=== PATIENT | female | born 1970 | race Caucasian/White ===

== ENCOUNTER 2019-03-23 15:09 | Emergency (ER) | payer OTHER ==
[2019-03-23 15:20] VITALS: BP 137/78; PULSE 116; TEMP 98.1; BMI 23.1
[2019-03-23] MEDS ORDERED: METHOCARBAMOL 500 MG TABLET PO ONE (15:41)
[2019-03-23] MEDS ORDERED: KETOROLAC TROMETHAMINE 60 MG/2 ML VIAL IM ONE (15:41)
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
[2019-03-23] MEDS ORDERED: METHOCARBAMOL 500 MG TABLET ONE (15:49)
[2019-03-23] MEDS ORDERED: KETOROLAC TROMETHAMINE 60 MG/2 ML VIAL ONE (15:49)
[2019-03-23 16:08] LABS: URINE APPEARANCE CLEAR; URINE BILIRUBIN NEGATIVE (NEGATIVE); URINE COLOR YELLOW; URINE GLUCOSE (UA) 3+ (NEGATIVE); URINE KETONE NEGATIVE (NEGATIVE); URINE LEUK ESTERASE NEGATIVE (NEGATIVE); URINE NITRITE NEGATIVE (NEGATIVE); URINE PROTEIN NEGATIVE (NEGATIVE)
== END 2019-03-23 16:40 | disposition home or self-care (01) ==
LOC: JERFT 15:09
PROC: 3E0233Z Introduction of Anti-inflammatory into Muscle, Percutaneous Approach (ICD-10-PCS; principal; 2019-03-23)
DX: M54.6 Pain in thoracic spine (principal); M54.5 Low back pain; Y04.2XXA Assault by strike against or bumped into by another person, initial encounter; Y07.01 Husband, perpetrator of maltreatment and neglect; W03.XXXA Other fall on same level due to collision with another person, initial encounter; Y93.89 Activity, other specified; Y92.009 Unspecified place in unspecified non-institutional (private) residence as the place of occurrence of the external cause
CPT/HCPCS: 72070-TC-FY; 72100-TC-FY; 81003; 84703; 99281-25

== ENCOUNTER 2023-06-28 | Emergency (ER) | payer OTHER ==
[2023-06-28 00:07] VITALS: BP 120/74; PULSE 88; RESP 18; TEMP 98; BMI 22.3
[2023-06-28 01:38] LABS: BASO % 0.2 % (0-2.0); EOS % 0.2 % (0-4.5); HEMATOCRIT 38.4 % (32.4-45.2); HEMOGLOBIN 13.3 GM/dL (10.7-15.3); LYMPH % 33.5 % (8-40); MCH 30.4 pg (25.7-33.7); MCHC 34.7 g/dl (32.0-36.0); MEAN CELL VOLUME 87.8 fl (80-96); MEAN PLT VOLUME 9.9 fl (7.5-11.1); MONO % 5.8 % (3.8-10.2); NEUT % 60.3 % (42.8-82.8); PLATELET COUNT 270 10^3/uL (134-434); RBC 4.38 M/mm3 (3.60-5.2); RDW 12.4 % (11.6-15.6); WHITE BLOOD COUNT 8.6 K/mm3 (4.0-10.0)
[2023-06-28 01:53] LABS: INR 1.02 (0.83-1.09); PROTHROMBIN TIME (PATIENT) 11.8 SEC (9.7-13.0)
[2023-06-28 02:18] LABS: POTASSIUM 3.6 mmol/L (3.5-5.1)
[2023-06-28 02:21] LABS: CALCIUM 9.2 mg/dL (8.5-10.1)
[2023-06-28 02:22] LABS: ALBUMIN 3.9 g/dl (3.4-5.0)
[2023-06-28 02:25] LABS: CREATININE 0.9 mg/dL (0.55-1.3)
[2023-06-28 02:26] LABS: TOT PROT 7.4 g/dl (6.4-8.2)
[2023-06-28 02:27] LABS: BILIRUBIN,TOTAL 0.4 mg/dL (0.2-1)
[2023-06-28 02:30] LABS: BLOOD UREA NITROGEN 18.6 mg/dL (7-18)
== END 2023-06-28 03:28 | disposition home or self-care (01) ==
LOC: JER
DX: R07.89 Other chest pain (principal); M94.0 Chondrocostal junction syndrome [Tietze]
CPT/HCPCS: 36415; 71046-TC-FY; 80053; 84484; 84703; 85025; 85379; 85610; 85730; 93005; 93010; 99285-25